=== PATIENT | female | born 1965 | race Caucasian/White ===

== ENCOUNTER 2023-02-10 18:13 | Emergency (ER) | payer BC, OTHER ==
[~2023-02-10] VITALS: Ht 172.7 cm; Wt 83.0 kg
[2023-02-10] MEDS ORDERED: AMPICILLIN & SULBACTAM SODIUM 3 GM in SODIUM CHL 0.9% 100 ML IV SCH (19:15)
[2023-02-10] MEDS ORDERED: NEOMYCIN-BACITRACIN-POLYM UNITDOSE PKG TOP OINT TOP ONE (19:15)
[2023-02-10] MEDS ORDERED: MUPI2OIN2 EX (19:16)
[2023-02-10] MEDS ORDERED: IBU600T PO (19:16)
[2023-02-10] MEDS ORDERED: CLIN300C70 PO (19:16)
[2023-02-10] MEDS ORDERED: DexAMETHasone SOD PHOS 10MG/1ML VIAL INJ IV ONE (19:30)
[2023-02-10 20:08] VITALS: BP 131/83
[2023-02-10] MEDS ORDERED: PIPERACILLIN-TAZO 4.5GM 100 ML IV ONE (20:15)
[2023-02-10] MEDS ORDERED: CEFTRIAXONE SODIUM 2 GM in D5W 5% 100 ML IV ONE (20:15)
== END 2023-02-10 21:40 | disposition home or self-care (01) ==
LOC: ER 18:18
DX: S60.460A Insect bite (nonvenomous) of right index finger, initial encounter (principal); L03.011 Cellulitis of right finger; W57.XXXA Bitten or stung by nonvenomous insect and other nonvenomous arthropods, initial encounter; Y93.89 Activity, other specified; Y92.89 Other specified places as the place of occurrence of the external cause; Y99.8 Other external cause status
CPT/HCPCS: 96365; 96375; 99284; J1100; J2543; J0696; J7060